=== PATIENT | female | born 1975 | race Caucasian/White ===

== ENCOUNTER 2019-12-12 00:39 | Emergency (ER) | payer SELFPAY ==
[~2019-12-12] VITALS: Ht 170.2 cm; Wt 57.0 kg
[2019-12-12] MEDS ORDERED: SODIUM CHLORIDE 0.9% 1,000 ML IV ONE (00:48)
[2019-12-12 01:17] LABS: CHLORIDE 107 mEq/L (98-107)
[2019-12-12 01:34] LABS: BASOPHILS % 0.5 % (0.0-2.0); EOSINOPHILS % 1.5 % (0.0-5.0); HEMATOCRIT. 40.2 % (36.0-48.0); HEMOGLOBIN. 13.7 g/dL (12.0-16.0); LYMPHOCYTES % 28.7 % (20.0-50.0); MEAN CORPUSCULAR HEMOGLOBIN 29.9 pg (28.0-32.0); MEAN CORPUSCULAR VOLUME 87.9 fL (81.0-99.0); MEAN PLATELET VOLUME 11.6 fl (7.4-10.4); MONOCYTES % 8.7 % (2.0-8.0); NEUTROPHILS % 60.6 % (40.0-76.0); PLATELET 165 x1000/uL (130-400); RED BLOOD CELL COUNT 4.58 mill/uL (4.2-5.4); RED CELL DISTRIBUTION WIDTH 12.9 % (11.6-14.6)
[2019-12-12 02:52] VITALS: BP 122/59
== END 2019-12-12 03:00 | disposition home or self-care (01) ==
LOC: ER 00:39
DX: R07.89 Other chest pain (principal); R00.2 Palpitations; F41.9 Anxiety disorder, unspecified; E03.9 Hypothyroidism, unspecified; E11.9 Type 2 diabetes mellitus without complications; I10 Essential (primary) hypertension; Z98.890 Other specified postprocedural states
CPT/HCPCS: 36415; 71045; 80053; 84443; 84484; 85025; 93005; 96360; 96361; 99285; J7030

== ENCOUNTER 2020-01-16 23:02 | Emergency (ER) | payer MEDICAID ==
[~2020-01-16] VITALS: Ht 167.6 cm; Wt 113.1 kg
[2020-01-16 23:09] VITALS: BP 150/70
[2020-01-17 00:08] LABS: BASOPHILS % 0.5 % (0.0-2.0); EOSINOPHILS % 1.7 % (0.0-5.0); HEMATOCRIT. 40.9 % (36.0-48.0); HEMOGLOBIN. 14.1 g/dL (12.0-16.0); LYMPHOCYTES % 30.3 % (20.0-50.0); MEAN CORPUSCULAR HEMOGLOBIN 30.6 pg (28.0-32.0); MEAN CORPUSCULAR VOLUME 88.4 fL (81.0-99.0); MEAN PLATELET VOLUME 11.9 fl (7.4-10.4); MONOCYTES % 10.5 % (2.0-8.0); PLATELET 185 x1000/uL (130-400); RED BLOOD CELL COUNT 4.63 mill/uL (4.2-5.4)
[2020-01-17 00:11] LABS: CHLORIDE 105 mEq/L (98-107)
== END 2020-01-17 03:50 | disposition home or self-care (01) ==
LOC: ER 23:02
DX: R00.2 Palpitations (principal); I48.92 Unspecified atrial flutter; I49.3 Ventricular premature depolarization; J45.909 Unspecified asthma, uncomplicated; E11.9 Type 2 diabetes mellitus without complications; I10 Essential (primary) hypertension; Z88.8 Allergy status to other drugs, medicaments and biological substances
CPT/HCPCS: 36415; 71045; 80053; 83880; 84443; 84484; 85025; 99284

== ENCOUNTER 2023-07-23 13:42 | Emergency (ER) | payer MEDICAID, OTHER ==
[~2023-07-23] VITALS: Ht 167.6 cm; Wt 100.0 kg
[2023-07-23 13:49] VITALS: BP 146/72; PULSE 70; RESP 18; TEMP 98.4; O2SAT 100
[2023-07-23] MEDS ORDERED: DIPH25TA24 MT (15:51)
== END 2023-07-23 16:01 | disposition home or self-care (01) ==
LOC: ER 13:42
DX: T63.461A Toxic effect of venom of wasps, accidental (unintentional), initial encounter (principal); S50.362A Insect bite (nonvenomous) of left elbow, initial encounter; M25.522 Pain in left elbow; J45.909 Unspecified asthma, uncomplicated; E11.9 Type 2 diabetes mellitus without complications; I10 Essential (primary) hypertension; Y93.89 Activity, other specified; Y99.8 Other external cause status; Y92.89 Other specified places as the place of occurrence of the external cause
CPT/HCPCS: 82962; 99281; 99282

== ENCOUNTER → 2023-12-08 | Emergency (ER) | payer MEDICAID, OTHER ==
[~2023-12-08] VITALS: Ht 165.1 cm; Wt 80.0 kg
[~2023-12-08] MED LIST: DIPH25TA24 MT
[2023-12-08 20:25] VITALS: O2SAT 99
[2023-12-08 21:09] VITALS: BP 131/66; PULSE 67; RESP 18; TEMP 36.94740; O2SAT 99
[2023-12-08 21:28] LABS: BASOPHILS % 0.7 % (0.0-2.0); DIFFERENTIAL COMMENT 0; HEMATOCRIT. 40.1 % (36.0-48.0); HEMOGLOBIN. 12.8 g/dL (12.0-16.0); LYMPHOCYTES % 26.5 % (20.0-50.0); MEAN CORPUSCULAR HEMOGLOBIN 24.9 pg (28.0-32.0); MEAN CORPUSCULAR HGB CONC 31.9 g/dL (31.0-37.0); MEAN CORPUSCULAR VOLUME 78.1 fL (81.0-99.0); MEAN PLATELET VOLUME 10.4 fl (7.4-10.4); MONOCYTES % 7.7 % (2.0-8.0); NEUTROPHILS % 60.1 % (40.0-76.0); PLATELET 201 x1000/uL (130-400); RED BLOOD CELL COUNT 5.13 mill/uL (4.2-5.4); RED CELL DISTRIBUTION WIDTH 18.9 % (11.6-14.6); WHITE BLOOD COUNT 8.8 x1000/uL (4.5-11.0)
[2023-12-08 21:35] LABS: CHLORIDE 105 mEq/L (98-107); POTASSIUM 3.6 mEq/L (3.5-5.1); SODIUM 138 mEq/L (136-145)
[2023-12-08 21:36] LABS: CARBON DIOXIDE 24 mEq/L (21-32)
[2023-12-08 21:37] LABS: CALCIUM 9.3 mg/dL (8.7-10.4)
[2023-12-08 21:39] LABS: INR 0.9; PARTIAL THROMBOPLASTIN TIME 28.5 sec (23.4-31.0); PROTHROMBIN TIME 10.2 sec (9.6-11.0)
[2023-12-08 21:41] LABS: CREATININE 0.9 mg/dL (0.6-1.0); GLUCOSE 266 mg/dL (70-105)
[2023-12-08 21:42] LABS: UREA NITROGEN BLOOD 13 mg/dL (9-23)
[2023-12-08 21:46] LABS: TROPONIN I HIGH SENSITIVITY < 4 ng/L (3.0-34)
[2023-12-08 21:53] LABS: HCG SCREEN NEGATIVE
== END ==
LOC: ER 20:23
DX: R07.89 Other chest pain (principal); J45.909 Unspecified asthma, uncomplicated; E11.9 Type 2 diabetes mellitus without complications; I10 Essential (primary) hypertension; E03.9 Hypothyroidism, unspecified; Z98.890 Other specified postprocedural states; Z88.8 Allergy status to other drugs, medicaments and biological substances; Z79.899 Other long term (current) drug therapy
CPT/HCPCS: 36415; 71045; 80048; 83880; 84484; 84703; 85025; 93005; 99285